=== PATIENT | female | born 1960 | race Caucasian/White ===

== ENCOUNTER → 2017-05-10 | Outpatient (CLI) | payer BC ==
[~2017-05-10] MED LIST: BACL10TA PO; DULO20CA18 PO; DULO60CA58 PO; HYDR25TA4 PO; LEVO75TA6 PO; LISI10TA2 PO; METF1000 PO; OMEP20TA7 PO; OMEP40CA36 PO; PRAV40TA2 PO; RT-ALBUINH IH; TRAM50TA2 PO
--- NOTE | 2017-05-10 14:53 | Diagnostic Imaging Report ---
PROCEDURE: MRI lumbar spine. TECHNIQUE: Multiplanar, multisequence MRI of the lumbar spine was performed without contrast. INDICATION: Back pain. Previous back surgeries. COMPARISON: None. FINDINGS: For the purposes of this exam, last well-formed disc space is noted the L5-S1 level. Evaluation of static alignment demonstrates reversal of normal lordotic curvature of the lumbar spine epicentered at the L1 level. There is no significant anterolisthesis or retrolisthesis. There is no evidence of jumped facets. Vertebral body heights are maintained. There is no evidence acute fracture. There are Modic type I changes involving the adjacent endplates on the right at L4-L5. Otherwise, the marrow signal is essentially unremarkable. There are multilevel degenerative changes consisting of intervertebral disc height loss with anterior posterior osteophyte complex formations. Postsurgical changes of previous hemilaminectomy are noted. Visualized portions of distal cord are unremarkable. Conus terminates at approximately the L1 level. No abnormal intrathecal filling defects are seen. Pre-and paravertebral soft tissue structures are unremarkable. Axial images demonstrate the following: T12-L1: There is no large disc bulge or focal protrusion. There is no significant spinal canal or neuroforaminal stenosis. L1-L2: There is right paracentric posterior disc protrusion. Is also bilateral ligament flavum laxity and facet arthropathy. As result, there is mild focal narrowing of the spinal canal on the right. There is also asymmetric mild narrowing of the lateral recess and right neuroforamen. Left neuroforamen is unremarkable. L2-L3: There is broad-based posterior disc bulge, eccentric to the left. Is also bilateral ligament flavum laxity and facet arthropathy. As result, there is mild narrowing of the spinal canal and asymmetric mild narrowing of the left neuroforamen. Right neuroforamen is unremarkable. L3-L4: There is broad-based posterior disc bulge, eccentric to the right. There is also bilateral ligament flavum laxity and facet arthropathy. As a result, there is mild narrowing of the spinal canal and asymmetric moderate narrowing of the right neuroforamen. There is minimal narrowing on the left. L4-L5: There is broad-based posterior disc bulge, postsurgical changes of previous right hemilaminectomy are noted. There is mild facet arthropathy and ligament flavum laxity on the left. There is moderate narrowing of the bilateral neuroforamen. Spinal canal is not significant narrowed. L5-S1: There is bilateral facet arthropathy. There is no large disc bulge or focal protrusion. There is no significant spinal canal or neuroforaminal stenosis. IMPRESSION: 1. Multilevel degenerative changes of the lumbar spine as described above. 2. Postsurgical changes of previous hemilaminectomy. No acute fracture or dislocation is identified. Dictated by: Dictated on workstation # [id number]
== END ==
LOC: RAD 13:30
PROVIDERS: ATTEND Orthopaedic Surgery Orthopaedic Surgery of the Spine
DX: M47.816 Spondylosis without myelopathy or radiculopathy, lumbar region; Z98.890 Other specified postprocedural states
CPT/HCPCS: 72148

== ENCOUNTER 2017-07-06 12:50 | Outpatient (CLI) | payer BC ==
[~2017-07-06] VITALS: Ht 152.4 cm; Wt 98.2 kg
[2017-07-06] MEDS ORDERED: HYDR25TA4 PO (13:03)
[2017-07-06] MEDS ORDERED: METF1000 PO (13:03)
[2017-07-06] MEDS ORDERED: OMEP40CA36 PO (13:03)
[2017-07-06] MEDS ORDERED: LEVO75TA6 PO (13:03)
[2017-07-06] MEDS ORDERED: PRAV40TA2 PO (13:03)
[2017-07-06] MEDS ORDERED: LISI10TA2 PO (13:03)
[2017-07-06] MEDS ORDERED: DULO20CA18 PO (13:03)
[2017-07-06] MEDS ORDERED: RT-ALBUINH IH (13:05)
[2017-07-06 13:09] VITALS: BP 143/79
[2017-07-06] MEDS ORDERED: DULO60CA58 PO (13:31)
[2017-07-06] MEDS ORDERED: OMEP20TA7 PO (13:31)
[2017-07-06 13:36] LABS: BASOPHILS # (AUTO) 0.1 10^3/uL (0.0-0.1); BASOPHILS % (AUTO) 1 % (0-10); EOSINOPHILS # (AUTO) 0.1 10^3/uL (0.0-0.3); EOSINOPHILS % (AUTO) 1 % (0-10); LYMPHOCYTES # (AUTO) 3.2 X 10^3 (1.0-4.0); LYMPHOCYTES % (AUTO) 38 % (12-44); MEAN CORPUSCULAR HEMOGLOBIN 28 PG (25-34); MEAN CORPUSCULAR HGB CONC 32 G/DL (32-36); MEAN CORPUSCULAR VOLUME 85 FL (80-99); MONOCYTES # (AUTO) 0.5 X 10^3 (0.0-1.0); MONOCYTES % (AUTO) 6 % (0-12); NEUTROPHILS # (AUTO) 4.7 X 10^3 (1.8-7.8); NEUTROPHILS % (AUTO) 55 % (42-75); PLATELET COUNT 358 10^3/uL (130-400); RED BLOOD COUNT 4.79 10^6/uL (4.35-5.85); RED CELL DISTRIBUTION WIDTH 14.5 % (10.0-14.5); WHITE BLOOD COUNT 8.6 10^3/uL (4.3-11.0)
== END 2017-07-06 14:00 ==
LOC: PREOP 12:50
PROVIDERS: ATTEND Orthopaedic Surgery Orthopaedic Surgery of the Spine
DX: Z01.812 Encounter for preprocedural laboratory examination (principal); M47.819 Spondylosis without myelopathy or radiculopathy, site unspecified; I10 Essential (primary) hypertension; Z22.322 Carrier or suspected carrier of Methicillin resistant Staphylococcus aureus
CPT/HCPCS: 36415; 85025; 87081

== ENCOUNTER 2017-07-19 07:22 | Inpatient (IN) | payer BC ==
[~2017-07-19] VITALS: Ht 152.4 cm; Wt 98.2 kg
[~2017-07-19 07:22] MED LIST changes: -BACL10TA PO; -TRAM50TA2 PO
--- OUTSIDE RECORDS SUMMARY | 2017-07-19 07:34 | XMS REPORT ---
Author Author [facility] Medical Staff Organization [facility] Address [address] [place], [place] [address] Phone [phone] Summary purpose TRANSITION OF CARE AUTO GENERATION Chief Complaint and Reason for Visit No authorized Reason for Visit (Admitting Diagnosis) is available for this visit. Problem list No authorized problems tracked for continuity of care are available for this visit. Encounters No authorized problems tracked for encounter diagnoses are available for this visit. Medications No medications recorded for this patient visit Allergies, adverse reactions, alerts Allergen Category Ingredient Status Reaction Severity Onset Sulfa (Sulfonamide Antibiotics) Drug Allergy Sulfa (Sulfonamide Antibiotics) Confirmed or Verified shrimp Food Allergy shrimp Confirmed or Verified plastic tape Miscellaneous Allergy plastic tape Confirmed or Verified red, rash, blisters Immunizations No immunizations recorded for this patient visit Relevant diagnostic tests and/or laboratory data RESULTS Radiology Results [id number] ABD SONO COMPLETE PACs Image DATE OF EXAM: Oct 31 2015 [id number] COMPLETE SONO : RADIOLOGY REPORT DATE OF SERVICE: 10/31/15 HISTORY: Abdominal pain COMPLETE ABDOMINAL [id number] HOURS The liver shows diffuse fatty infiltration without focal lesions. The gallbladder is surgically absent. The bile ducts are normal. The pancreas is within normal limits. Both kidneys are normal. The spleen is unremarkable. There is no abdominal mass or ascites. The abdominal aorta is normal in caliber. The inferior vena cava is patent. IMPRESSION: Fatty liver. Status post cholecystectomy. No other significant abdominal abnormality. MD EFREM Judd/mn10/31/2015 08:45:00 / 10/31/2015 08:53:12 cc:Nikki SAHU This document has been electronically Signed by: On: DATE OF EXAM: Oct 31 2015 [id number] COMPLETE SONO : RADIOLOGY REPORT DATE OF SERVICE: 10/31/15 HISTORY: Abdominal pain COMPLETE ABDOMINAL [id number] HOURS The liver shows diffuse fatty infiltration without focal lesions. The gallbladder is surgically absent. The bile ducts are normal. The pancreas is within normal limits. Both kidneys are normal. The spleen is unremarkable. There is no abdominal mass or ascites. The abdominal aorta is normal in caliber. The inferior vena cava is patent. IMPRESSION: Fatty liver. Status post cholecystectomy. No other significant abdominal abnormality. Alexis Martinez MD MWRico/nh10/31/2015 08:45:00 / 10/31/2015 08:53:12 cc:Nikki WATERSP-Bonifacio This document has been electronically Signed by: ALEXIS MARTINEZ MD On: Oct 31 2015 10:27A Result Amended on 2015-10-31 at 10:27:05. Previous status was [place]. History of procedures Procedure Code Code Type Description Date Performed Performing Physician 75395 CPT-4 US EXAM, ABDOM, COMPLETE 10-31-2015 DORIS STACK Functional status No functional or cognitive status observations are available for this visit. Vital signs No authorized vital signs are available for this visit. Social history No Social History or smoking status observations were recorded for this visit. ( Unknown if ever smoked.) Treatment Plan No treatment plan text is available for this visit. Hospital discharge instructions No discharge instruction text is available for this visit.
--- OUTSIDE RECORDS SUMMARY | 2017-07-19 07:34 | XMS REPORT ---
Author Author [facility] Medical Staff Organization [facility] Address [address] [place], [place] [address] Phone [phone] Summary purpose TRANSITION OF CARE AUTO GENERATION [...] tests and/or laboratory data RESULTS Radiology Results [id number] MRI L-SPINE W/O CONT PACs Image DATE OF EXAM: Mar 17 2016 MRI 0085-MRI L SPINE WO CONTRAST : RADIOLOGY REPORT DATE OF SERVICE: 03/17/16 HISTORY: Progressive low back pain with right leg radiculopathy since September 2015, history of falls with injury in 2012 and 2013. NONCONTRAST MRI LUMBAR SPINE 0930 HOURS Imaging was performed in the sagittal and axial planes. No contrast was administered. The lumbar vertebrae show normal height and alignment. There is no fracture or subluxation. The upper sacrum is normal. The conus medullaris is normal and terminates at the upper aspect of L1. The paraspinous soft tissues are normal. The T12-L1 level is normal. At L1-L2 there is a small right paracentral disc protrusion with mild effacement of the ventral aspect of the subarachnoid space at this level. Definite nerve root effacement is not seen. There is no canal narrowing. At L2-L3, there is a focal left foraminal disc protrusion. Definite nerve root compromise is not evident. There is mild degenerative facet arthrosis without canal stenosis. At L3-L4, there is focal right foraminal disc protrusion which may compromise the proximal right L4 nerve root at the level of the L4 lateral recess. There is mild degenerative facet arthrosis. There is no canal narrowing. At L4-L5, there is central and right paracentral disc herniation with a right paracentral caudally extruded disc fragment extending to the mid L5 level. This compromises the right L5 nerve root and right lateral recess. There is moderate degenerative facet arthrosis. There is moderate canal stenosis. No left-sided nerve root effacement is seen. At L5-S1, there is minimal central posterior disc protrusion. There is a small left-sided paracentral annular fissure. There is mild degenerative facet arthrosis. There is no canal stenosis or nerve root effacement. IMPRESSION: Multilevel lumbar degenerative disc changes. Central and right paracentral disc herniation at L4-L5 with caudally extruded disc fragment. Small left foraminal disc protrusion at L2-L3 and small right foraminal disc protrusion at L3-L4. Minimal central posterior disc protrusion at L5-S1 and L1-L2. Mild canal stenosis at the L4-L5 level. Lower lumbar facet arthrosis as above. Alexis Martinez MD MWD/de03/17/2016 10:26:00 / 03/17/2016 13:07:01 cc:Kassidy Terrazas PA-C This document has been electronically Signed by: On: DATE OF EXAM: Mar 17 2016 MRI 0085-MRI L SPINE WO CONTRAST : RADIOLOGY REPORT DATE OF SERVICE: 03/17/16 HISTORY: Progressive low back pain with right leg radiculopathy since September 2015, history of falls with injury in 2012 and 2013. NONCONTRAST MRI LUMBAR SPINE 0930 HOURS Imaging was performed in the sagittal and axial planes. No contrast was administered. The lumbar vertebrae show normal height and alignment. There is no fracture or subluxation. The upper sacrum is normal. The conus medullaris is normal and terminates at the upper aspect of L1. The paraspinous soft tissues are normal. The T12-L1 level is normal. At L1-L2 there is a small right paracentral disc protrusion with mild effacement of the ventral aspect of the subarachnoid space at this level. Definite nerve root effacement is not seen. There is no canal narrowing. At L2-L3, there is a focal left foraminal disc protrusion. Definite nerve root compromise is not evident. There is mild degenerative facet arthrosis without canal stenosis. At L3-L4, there is focal right foraminal disc protrusion which may compromise the proximal right L4 nerve root at the level of the L4 lateral recess. There is mild degenerative facet arthrosis. There is no canal narrowing. At L4-L5, there is central and right paracentral disc herniation with a right paracentral caudally extruded disc fragment extending to the mid L5 level. This compromises the right L5 nerve root and right lateral recess. There is moderate degenerative facet arthrosis. There is moderate canal stenosis. No left-sided nerve root effacement is seen. At L5-S1, there is minimal central posterior disc protrusion. There is a small left-sided paracentral annular fissure. There is mild degenerative facet arthrosis. There is no canal stenosis or nerve root effacement. IMPRESSION: Multilevel lumbar degenerative disc changes. Central and right paracentral disc herniation at L4-L5 with caudally extruded disc fragment. Small left foraminal disc protrusion at L2-L3 and small right foraminal disc protrusion at L3-L4. Minimal central posterior disc protrusion at L5-S1 and L1-L2. Mild canal stenosis at the L4-L5 level. Lower lumbar facet arthrosis as above. Alexis Martinez MD MWD/de03/17/2016 10:26:00 / 03/17/2016 13:07:01 cc:Kassidy Terrazas PA-C This document has been electronically Signed by: ALEXIS MARTINEZ MD On: Mar 17 20162:18P Result Amended on 2016-03-17 at 14:18:19. Previous status was [place]. L Diagnostic Digital Mammo PACs Image DATE OF EXAM: Mar 17 2016 [facility] 0811-UNILAT L DIAG DIG MAMMO : RADIOLOGY REPORT DATE OF SERVICE: 03/17/16 HISTORY: Asymmetry on screening mammogram DIAGNOSTIC DIGITAL LEFT [id number] HOURS Detailed spot compression views, repeat cephalocaudal view, and straight mediolateral view of the left breast were obtained. There are scattered residual fibroglandular densities. There is no definite mass or distortion. There are no microcalculi. The questioned asymmetry in the cephalocaudal view is felt to be benign fibroglandular density. IMPRESSION: Negative left mammogram BI-RADS I recommend return to routine annual mammographic screening. MD EFREM Judd/de03/17/2016 11:06:00 / 03/17/2016 13:22:08 cc:Kassidy Terrazas PA-C This document has been electronically Signed by: On: DATE OF EXAM: Mar 17 2016 [facility] 0811-UNILAT L DIAG DIG MAMMO : RADIOLOGY REPORT DATE OF SERVICE: 03/17/16 HISTORY: Asymmetry on screening mammogram DIAGNOSTIC DIGITAL LEFT [id number] HOURS Detailed spot compression views, repeat cephalocaudal view, and straight mediolateral view of the left breast were obtained. There are scattered residual fibroglandular densities. There is no definite mass or distortion. There are no microcalculi. The questioned asymmetry in the cephalocaudal view is felt to be benign fibroglandular density. IMPRESSION: Negative left mammogram BI-RADS I recommend return to routine annual mammographic screening. MD EFREM Judd/de03/17/2016 11:06: / 03/17/2016 13:22:08 cc:Kassidy Terrazas PA-C This document has been electronically Signed by: ALEXIS MARTINEZ MD On: Mar 17 20162:18P Result Amended on 2016-03-17 at 14:18:32. Previous status was [place]. History of procedures No procedures recorded for this patient visit. Functional status No functional or cognitive status [...]
--- OUTSIDE RECORDS SUMMARY | 2017-07-19 07:34 | XMS REPORT ---
Author Author [facility] Medical Staff Organization [facility] Address [address] [place], [place] [id number] Phone [phone] Care Team Providers Care Cartoon Designer Name Role Phone BENI MARTINEZ MD PP [phone] Summary purpose TRANSITION OF CARE AUTO GENERATION Chief Complaint and Reason for Visit Admit Diagnosis 1 LUMBAGO Problem list No authorized problems tracked for [...] visit Relevant diagnostic tests and/or laboratory data No authorized results are available for this patient visit History of procedures Procedure Code Code Type Description Date Performed Performing Physician [id number] CPT-4 ALS1-EMERGENCY 04-18-2015 [facility] A0425 CPT-4 GROUND MILEAGE 04-18-2015 [facility] Functional status No functional or cognitive status [...]
--- OUTSIDE RECORDS SUMMARY | 2017-07-19 07:34 | XMS REPORT ---
Author Author [facility] Medical Staff Organization [facility] Address [address] [place], [place] [address] Phone [phone] Summary purpose TRANSITION OF CARE AUTO GENERATION [...] tests and/or laboratory data RESULTS Radiology Results [id number]:24:00 Bilateral Screen Digital Mammo PACs Image DATE OF EXAM: 2015 [facility] 0845-BILAT SCREEN DIG MAMMO : RADIOLOGY REPORT DATE OF SERVICE: 03/04/16 HISTORY: Screening exam BILATERAL DIGITAL SCREENING MAMMOGRAM WITH iCAD SecondLook 7.2-H+ 0821 HOURS Comparison is made with 02/26/2015 and 02/19/2014. There are scattered residual fibroglandular densities. There is a 5 mm asymmetry in the retroareolar left breast in the cephalocaudal view, 3.8 cm posterior to the nipple. This is not apparent in the MLO projection. The right breast shows no dominant lesions. There are no irregular masses or grouped microcalculi. There is no distortion. IMPRESSION: 5 mm left breast asymmetry as described above. Detailed spot compression views in the cephalocaudal view, straight mediolateral view, and possible left breast ultrasound are recommended for additional evaluation, BI-RADS 0, evaluation incomplete, need additional imaging. MD EFREM Judd/ar03/04/2016 08:44:00 / 03/04/2016 09:21:45 cc:Sneha Terrazas PA-C This document has been electronically Signed by: On: DATE OF EXAM: 2015 [facility] 0845-BILAT SCREEN DIG MAMMO : RADIOLOGY REPORT DATE OF SERVICE: 03/04/16 HISTORY: Screening exam BILATERAL DIGITAL SCREENING MAMMOGRAM WITH iCAD SpodlyLook 7.2-H+ 0821 HOURS Comparison is made with 02/26/2015 and 02/19/2014. There are scattered residual fibroglandular densities. There is a 5 mm asymmetry in the retroareolar left breast in the cephalocaudal view, 3.8 cm posterior to the nipple. This is not apparent in the MLO projection. The right breast shows no dominant lesions. There are no irregular masses or grouped microcalculi. There is no distortion. IMPRESSION: 5 mm left breast asymmetry as described above. Detailed spot compression views in the cephalocaudal view, straight mediolateral view, and possible left breast ultrasound are recommended for additional evaluation, BI-RADS 0, evaluation incomplete, need additional imaging. MD EFREM Judd/ar03/04/2016 08:44:00 / 03/04/2016 09:21:45 cc:Sneha Terrazas PA-C This document has been electronically Signed by: TOVA COTE MD On: 2015 10:24A Result Amended on 2016-03-04 at 10:24:11. Previous status was [place]. History of procedures Procedure Code Code Type Description Date Performed Performing Physician 84678 CPT-4 MAMMOGRAM, SCREENING 03-04-2016 SNEHA TERRAZAS 61516 CPT-4 COMP SCREEN MAMMOGRAM ADD-ON 03-04-2016 SNEHA TERRAZAS Functional status No functional or cognitive status [...]
--- OUTSIDE RECORDS SUMMARY | 2017-07-19 07:34 | XMS REPORT ---
Author Author [facility] Medical Staff Organization [facility] Address [address] [place], [place] [address] Phone [phone] Summary purpose TRANSITION OF CARE AUTO GENERATION [...] tests and/or laboratory data RESULTS Radiology Results [id number]:00 MRI L-SPINE W/O CONT PACs Image DATE [...] facet arthrosis as above. Alexis Martinez MD MWD/sc03/17/2016 10:26:00 / 03/17/2016 13:07:01 cc:Kassidy Terrazas PA-C [...] facet arthrosis as above. Alexis Martinez MD MWD/sc03/17/2016 10:26:00 / 03/17/2016 13:07:01 cc:Kassidy Terrazas PA-C This document has been electronically Signed by: ALEXIS MARTINEZ MD On: Mar 17 20162:18P Result Amended on 2016-03-17 at 14:18:19. Previous status was [place]. L Diagnostic Digital Mammo PACs Image DATE OF EXAM: Mar 17 2016 [facility] 0811-UNILAT L DIAG DIG MAMMO : RADIOLOGY REPORT DATE OF SERVICE: 03/17/16 HISTORY: Asymmetry on screening mammogram DIAGNOSTIC DIGITAL LEFT [id number] HOURS Detailed spot compression views, repeat cephalocaudal [...] to routine annual mammographic screening. MD EFREM Judd/sc03/17/2016 11:06:00 / 03/17/2016 13:22:08 cc:Kassidy Terrazas PA-C This document has been electronically Signed by: On: DATE OF EXAM: Mar 17 2016 [facility] 0811-UNILAT L DIAG DIG MAMMO : RADIOLOGY REPORT DATE OF SERVICE: 03/17/16 HISTORY: Asymmetry on screening mammogram DIAGNOSTIC DIGITAL LEFT [id number] HOURS Detailed spot compression views, repeat cephalocaudal [...] to routine annual mammographic screening. MD EFREM Judd/sc03/17/2016 11:06: / 03/17/2016 13:22:08 cc:Kassidy Terrazas PA-C This document has been electronically Signed by: ALEXIS MARTINEZ MD On: Mar 17 20162:18P Result Amended on 2016-03-17 at 14:18:32. Previous status was [place]. History of procedures No procedures recorded for [...]
--- OUTSIDE RECORDS SUMMARY | 2017-07-19 07:34 | XMS REPORT ---
Author Author [facility] Medical Staff Organization [facility] Address [address] [place], [place] [address] Phone [phone] Summary purpose TRANSITION OF CARE AUTO GENERATION [...] Relevant diagnostic tests and/or laboratory data RESULTS Chemistry [id number]:41:00 Result Normal Range Units Sodium 141 134-145 mEq/l Potassium 3.8 3.5-5.1 mEq/l Chloride 101 98-107 mEq/l CO2 H 35.0 22-28 mEq/l Glucose H 115 70-105 mg/dl BUN 12 7-18 mg/dl Creatinine 0.91 0.6-1.0 mg/dl Triglycerides 108 35-160 mg/dl Cholesterol H 248 120-200 mg/dl HDL Cholesterol 48 39-96 mg/dl VLDL Cholesterol 22 5-40 mg/dl LDL Cholesterol H 186 30-100 mg/dl Calcium 8.9 8.4-10.2 mg/dl TP - Total Protein 7.3 6.0-8.3 g/dl Albumin 3.5 3.5-5 g/dl Bilirubin - Total 0.3 0.1-1.0 mg/dl AST 20 10-42 IU/L ALT 30 12-65 IU/L ALP H 81 25-72 IU/L Osmolality 281.9 280-300 mOsm/L Albumin/Globulin Ratio 0.9 0-8 Anion GAP L 5.0 8-16 BUN/Creatinine Ratio 13.2 10-20 Estimated GFR 63 >=60 mL/min/1.7 History of procedures No procedures recorded for [...]
[2017-07-19 07:35] VITALS: BP 142/85
--- OUTSIDE RECORDS SUMMARY | 2017-07-19 07:35 | XMS REPORT ---
Author Author [facility] Medical Staff Organization [facility] Address [address] [place], [place] [address] Phone [phone] Care Team Providers Care Commonwealth Attorney Name Role Phone JUAN WALKER, BENI RICHEY [phone] BENI MARTINEZ MD, PP [phone] Summary purpose TRANSITION OF CARE AUTO GENERATION [...] Relevant diagnostic tests and/or laboratory data RESULTS Routine Urinalysis 25-59-099042:23:00 Result Normal Range Units Color YELLOW Clarity Clear Specific [place] 1.015 1.003-1.035 pH 8.0 4.5-8.0 Glucose NEGATIVE Bilirubin NEGATIVE Ketones NEGATIVE Protein NEGATIVE Urobilinogen 0.2 0-0.2 E.U./dL Nitrites NEGATIVE Blood TRACE Leukocytes TRACE WBCs 5-10 RBCs 0-5 Squamous Epithelial Few Bacteria Occasional Body Fluid 89-10-539325:23:00 Result Normal Range Units pH 8.0 4.5-8.0 Radiology Results 74-74-159647:30:00 Thoracic Spine - 3 View PACs Image DATE OF EXAM: Apr 18 2015 RAD 0425-THORACIC SPINE-3 VIEW : RADIOLOGY REPORT DATE OF SERVICE: 04/18/15 HISTORY: Right back pain THORACIC SPINE 3 VIEWS 0940 HOURS The thoracic vertebrae are normal in height and alignment. There is no fracture. Degenerative disc changes are scattered in the mid thoracic spine. IMPRESSION: Mild degenerative thoracic disc changes. No thoracic fracture. MD EFREM Judd/ut04/18/2015 10:07:00 / 04/18/2015 10:13:21 cc:Dr. Beni Martinez This document has been electronically Signed by: On: DATE OF EXAM: Apr 18 2015 RAD 0425-THORACIC SPINE-3 VIEW : RADIOLOGY REPORT DATE OF SERVICE: 04/18/15 HISTORY: Right back pain THORACIC SPINE 3 VIEWS 0940 HOURS The thoracic vertebrae are normal in height and alignment. There is no fracture. Degenerative disc changes are scattered in the mid thoracic spine. IMPRESSION: Mild degenerative thoracic disc changes. No thoracic fracture. MD EFREM Judd/ut04/18/2015 10:07:00 / 04/18/2015 10:13:21 cc:Dr. Beni Martinez This document has been electronically Signed by: TOVA COTE On: Apr 18 20155:30P Result Amended on 2015-04-18 at 17:30:24. Previous status was [place]. History of procedures No procedures recorded for this patient visit. Functional status Functional Status Finding Observation Time Hearing Prob Loc none 72-96-873748:30 Vision Problems yes 89-19-911909:30 Vision Correct Dev contacts 64-42-646401:30 Ambulation Asst Dev none 10-04-197557:30 Abdomen Appearance obese 15-51-415710:45 Abdomen soft 82-52-644699:45 Bowel Sounds present 98-18-807941:45 Latif no 46-16-362459:45 Urination normal 14-48-613500:45 Quality sym/unlabored 83-64-218417:45 Cough absent 72-41-685508:45 Secretions no 18-45-945278:45 Breath Sounds RUL clear 94-19-736885:45 Breath Sounds RML clear 38-84-007077:45 Breath Sounds RLL clear :45 Breath Sounds JOHNNY clear 76-81-712597:45 Breath Sounds LLL clear 24-58-901739:45 Airway natural 06-81-717292:45 Chest Tube no 60-79-209979:45 Oxygen no 90-23-826470:12 Temp >100.4 no 51-54-970842:45 Temp <96.8 no 52-44-058553:45 Chills with rigors no :45 HR > 90bpm no :45 Respirations > 20 no : Systolic <90 no :45 headache stiff neck no :45 IV Site Location L AC 57-79-926002:10 IV Type peripheral 10-93-677718:10 IV Site Information discontinued 37-37-231234:10 IV Site Start Attmpt 1 times 68-21-647195:30 IV Site Dejan 20 66-47-602834:30 IV Site Appearance WNL :30 IV Site Color clear : IV Site Patent yes : Dressing Type occlusive : Nursing Note VS obtained. Pt now rates her pain at 3/10. Pt stable to ambulate off [place] with her to drive her home safely. 98-76-683950:12 Vital signs Type Value Date Respiration Rate 20breaths per minute 41-44-305554:12 Pulse 68beats per minute 65-08-544076:12 Oxygen Saturation 94% 80-67-311607:12 BP Systolic 163mmHg 75-43-316703:12 BP Diastolic 85mmHg 79-50-498151:12 Temperature 97.4F 90-35-409752:12 Weight 215LB 43-78-724084:30 Social history Type Value Smoking Status NEVER SMOKER Treatment Plan No treatment plan text is available for this visit. Hospital discharge instructions Dismissal Condition fair Disposition on DC home DC Inst/Educ Give yes Med/Side Effects Rev yes PNE Vac None Flu Vac 2015 Tetanus Vac Current
--- OUTSIDE RECORDS SUMMARY | 2017-07-19 07:35 | XMS REPORT ---
Author Author [facility] Medical Staff Organization [facility] Address [address] [place], [place] [address] Phone [phone] Summary purpose TRANSITION OF CARE AUTO GENERATION [...] diagnostic tests and/or laboratory data RESULTS Chemistry 71-36-118317:41:00 Result Normal Range Units Sodium 141 134-145 [...] GFR 63 >=60 mL/min/1.7 History of procedures Procedure Code Code Type Description Date Performed Performing Physician 47370 CPT-4 COMPREHEN METABOLIC PANEL 05-15-2016 SENHA CASTILLO 70570 CPT-4 LIPID PANEL 05-15-2016 SNEHA CASTILLO Functional status No functional or cognitive status [...]
--- OUTSIDE RECORDS SUMMARY | 2017-07-19 07:35 | XMS REPORT ---
Author Author [facility] Medical Staff Organization [facility] Address [address] [place], [place] [address] Phone [phone] Summary purpose TRANSITION OF CARE AUTO GENERATION [...] tests and/or laboratory data RESULTS Radiology Results 70-71-477703:24:00 Bilateral Screen Digital Mammo PACs Image DATE OF EXAM: 2015 [facility] 0845-BILAT SCREEN DIG MAMMO : RADIOLOGY REPORT [...] evaluation incomplete, need additional imaging. MD EFREM Judd/nd03/04/2016 08:44:00 03/04/2016 09:21:45 cc:Kassidy Terrazas PA-C This document has been electronically Signed by: On: DATE OF EXAM: 2015 [facility] 0845-BILAT SCREEN DIG MAMMO : RADIOLOGY REPORT DATE OF SERVICE: 03/04/16 HISTORY: Screening exam BILATERAL DIGITAL SCREENING MAMMOGRAM WITH iCAD Algal ScientificLook 7.2-H+ 0821 HOURS Comparison is made with [...] BI-RADS 0, evaluation incomplete, need additional imaging. Alexis Martinez MD Rico/nd03/04/2016 08:44:00 / 03/04/2016 09:21:45 cc:Kassidy Terrazas PA-C This document has been electronically Signed by: ALEXIS MARTINEZ MD On: 2015 10:24A Result Amended on 2016-03-04 at 10:24:11. Previous status was [place]. History of procedures No procedures recorded for [...]
--- OUTSIDE RECORDS SUMMARY | 2017-07-19 07:35 | XMS REPORT ---
Author Author [facility] Medical Staff Organization [facility] Address [address] [place], [place] [address] Phone [phone] Summary purpose TRANSITION OF CARE AUTO GENERATION [...] tests and/or laboratory data RESULTS Radiology Results 68-22-925809:27:00 ABD SONO COMPLETE PACs Image DATE OF EXAM: Oct 31 2015 [id number] COMPLETE SONO : RADIOLOGY REPORT DATE OF SERVICE: 10/31/15 HISTORY: Abdominal pain COMPLETE ABDOMINAL [id number] HOURS The liver shows diffuse fatty infiltration [...] No other significant abdominal abnormality. MD EFREM Judd/ms10/31/2015 08:45:00 / 10/31/2015 08:53:12 cc:Nikki SAHU This document has been electronically Signed by: On: DATE OF EXAM: Oct 31 2015 [id number] COMPLETE SONO : RADIOLOGY REPORT DATE OF SERVICE: 10/31/15 HISTORY: Abdominal pain COMPLETE ABDOMINAL [id number] HOURS The liver shows diffuse fatty infiltration [...] other significant abdominal abnormality. Alexis Martinez MD MWD/nh10/31/2015 08:45:00 / 10/31/2015 08:53:12 cc:Nikki WATERSP- This document has been electronically Signed by: ALEXIS MARTINEZ MD On: Oct 31 2015 10:27A Result Amended on 2015-10-31 at 10:27:05. Previous status was [place]. History of procedures No procedures recorded for [...]
--- OUTSIDE RECORDS SUMMARY | 2017-07-19 07:35 | XMS REPORT ---
Author Author [facility] Medical Staff Organization [facility] Address [address] [place], [place] [address] Phone [phone] Care Team Providers Care Officer Lieutenant Name Role Phone JUAN WALKER, BENI RICHEY [phone] BENI MARTINEZ MD, PP [phone] Summary purpose TRANSITION OF CARE AUTO GENERATION Chief Complaint and Reason for Visit Admit Diagnosis 1 BACKACHE NOS Problem list No authorized problems tracked for [...] tests and/or laboratory data RESULTS Routine Urinalysis 04-71-054209:23:00 Result Normal Range Units Color YELLOW Clarity Clear Specific [place] 1.015 1.003-1.035 pH 8.0 4.5-8.0 Glucose NEGATIVE Bilirubin NEGATIVE Ketones NEGATIVE Protein NEGATIVE Urobilinogen 0.2 0-0.2 E.U./dL Nitrites NEGATIVE Blood TRACE Leukocytes TRACE WBCs 5-10 RBCs 0-5 Squamous Epithelial Few Bacteria Occasional Routine Cultures 02-26-825687:53:00 Urine Culture Plate Date and Time 04/18/2015 09:53 SourceURINE CULTURE REPORT 10,000 colonies/ml Mixed Gram Pos Delfina Release Date/Time: 04/19/2015 08:15 CULTURE REPORT 20,000 colonies/ml Mixed Gram Pos Delfina Release Date/Time: 04/20/2015 07:47 Body Fluid 42-79-348071:23:00 Result Normal Range Units pH 8.0 4.5-8.0 Radiology Results 13-54-432067:30:00 Thoracic Spine - 3 View PACs Image [...] disc changes. No thoracic fracture. MD EFREM Judd/fl04/18/2015 10:07: / 04/18/2015 10:13:21 cc:Dr. Beni Martinez This [...] degenerative thoracic disc changes. No thoracic fracture. Alexis Martinez MD Rico/fl04/18/2015 10:07: / 04/18/2015 10:13:21 cc:Dr. Beni Martinez This document has been electronically Signed by: ALEXIS MARTINEZ On: Apr 18 20155:30P Result Amended on 2015-04-18 at 17:30:24. Previous status was [place]. History of procedures Procedure Code Code Type Description Date Performed Performing Physician 99481 CPT-4 X-RAY EXAM OF THORACIC SPINE 04-18-2015 SHEILA GONZALEZ 27208 CPT-4 URINALYSIS, AUTO W/SCOPE 04-18-2015 SHEILA GONZALEZ 79530 CPT-4 URINE CULTURE/COLONY COUNT 04-18-2015 SHEILA GONZALEZ J2360 CPT-4 ORPHENADRINE INJECTION 04-18-2015 SHEILA GONZALEZ 70118 CPT-4 EMERGENCY DEPT VISIT 04-18-2015 SHEILA GONZALEZ 39316 CPT-4 EMERGENCY DEPT VISIT 04-18-2015 SHEILA GONZALEZ 08742 CPT-4 THER/PROPH/DIAG INJ, IV PUSH 04-18-2015 SHEILA GONZALEZ Functional status Functional Status Finding Observation Time Hearing Prob Loc none 81-27-027313:30 Vision Problems yes 36-65-860421:30 Vision Correct Dev contacts 47-04-704499:30 Ambulation Asst Dev none 43-44-902648:30 Abdomen Appearance obese 22-39-406202:45 Abdomen soft :45 Bowel Sounds present :45 Latif no :45 Urination normal :45 Quality sym/unlabored :45 Cough absent :45 Secretions no :45 Breath Sounds RUL clear :45 Breath Sounds RML clear :45 Breath Sounds RLL clear :45 Breath Sounds JOHNNY clear :45 Breath Sounds LLL clear :45 Airway natural :45 Chest Tube no :45 Oxygen no :12 Temp >100.4 no :45 Temp <96.8 no :45 Chills with rigors no : HR > 90bpm no :45 Respirations > 20 no :45 Systolic <90 no :45 headache stiff neck no :45 IV Site Location L AC 48-48-991454:10 IV Type peripheral 60-30-400844:10 IV Site Information discontinued 53-88-472857:10 IV Site Start Attmpt 1 times :30 IV Site Dejan 20 :30 IV Site Appearance WNL :30 IV Site Color clear :30 IV Site Patent yes 29-56-252259:30 Dressing Type occlusive 65-22-204715:30 Nursing Note VS obtained. Pt now rates her pain at 3/10. Pt stable to ambulate off [place] with her to drive her home safely. :12 Vital signs Type Value Date Respiration Rate 20breaths per minute 72-51-504373:12 Pulse 68beats per minute 93-95-658849:12 Oxygen Saturation 94% :12 BP Systolic 163mmHg 68-17-386172:12 BP Diastolic 85mmHg 83-10-041791:12 Temperature 97.4F 51-95-954877:12 Weight 215LB 30-16-524682:30 Social history Type Value Smoking Status NEVER SMOKER Treatment Plan No treatment plan text is available for this visit. Hospital discharge instructions Dismissal Condition fair Disposition on DC home DC Inst/Educ Give yes Med/Side Effects Rev yes PNE Vac None Flu Vac 2015 Tetanus Vac Current
--- OUTSIDE RECORDS SUMMARY | 2017-07-19 07:35 | XMS REPORT ---
Author Author [facility] Medical Staff Organization [facility] Address [address] [place], [place] [address] Phone [phone] Care Team Providers Care Manufacturing Controls Engineer Name Role Phone BENI MARTINEZ MD PP [phone] Summary purpose TRANSITION OF CARE AUTO GENERATION [...] for this patient visit History of procedures No procedures recorded for [...]
--- OUTSIDE RECORDS SUMMARY | 2017-07-19 07:35 | XMS REPORT ---
Author Author [facility] Medical Staff Organization [facility] Address [address] [place] [id number] Phone [phone] Care Team Providers Care Electric Truck Crane Operator Name Role Phone BENI MARTINEZ MD PP [phone] Summary purpose TRANSITION OF CARE AUTO GENERATION [...]
--- OUTSIDE RECORDS SUMMARY | 2017-07-19 07:35 | XMS REPORT ---
Author Author [facility] Medical Staff Organization [facility] Address [address] [place], [place] [address] Phone [phone] Care Team Providers Care Chaser Apprentice Name Role Phone JUAN WALKER, BENI RICHEY [phone] BENI MARTINEZ MD, PP [phone] Summary purpose TRANSITION OF CARE AUTO GENERATION Chief Complaint and Reason for Visit Admit Diagnosis 1 OT SCREEN MAMMOGRAM Problem list No authorized problems tracked for [...] tests and/or laboratory data RESULTS Radiology Results 59-90-447593:51:00 Bilateral Screen Digital Mammo PACs Image DATE OF EXAM: Feb 26 2015 [facility] 0845-BILAT SCREEN DIG MAMMO : RADIOLOGY REPORT DATE OF SERVICE:02/26/15 HISTORY: Screening for possible malignant neoplasm BILATERAL SCREENING DIGITAL MAMMOGRAPHY WITH iCAD SecondLook 7.2 - H+ 0800 HOURS The breast has scattered fibroglandular density.No mass, grouped calculi or architectural distortion is seen. IMPRESSION:ACR BIRADS II - benign study similar to 02/19/14 DO LUIS Gamble/enoc 02/26/2015 17:01:00 / 02/26/2015 23:08:12 cc:Sneha Terrazas PA-C This document has been electronically Signed by: On: DATE OF EXAM: Feb 26 2015 [facility] 0845-BILAT SCREEN DIG MAMMO : RADIOLOGY REPORT DATE OF SERVICE:02/26/15 HISTORY: Screening for possible malignant neoplasm BILATERAL SCREENING DIGITAL MAMMOGRAPHY WITH iCAD SecondLook 7.2 - H+ 0800 HOURS The breast has scattered fibroglandular density.No mass, grouped calculi or architectural distortion is seen. IMPRESSION:ACR BIRADS II - benign study similar to 02/19/14 Sheila Browne DO MW/pb 02/26/2015 17:01:00 / 02/26/2015 23:08:12 cc:Sneha Terrazas PA-C This document has been electronically Signed by: SHEILA BROWNE DO On: Feb 27 2015 11:51A Result Amended on 2015-02-27 at 11:51:49. Previous status was [place]. History of procedures Procedure Code Code Type Description Date Performed Performing Physician 36354 CPT-4 MAMMOGRAM, SCREENING 02-26-2015 SNEHA TERRAZAS 81636 CPT-4 COMP SCREEN MAMMOGRAM ADD-ON 02-26-2015 SNEHA TERRAZAS Functional status No functional or [...]
--- OUTSIDE RECORDS SUMMARY | 2017-07-19 07:36 | XMS REPORT ---
Author Author [facility] Medical Staff Organization [facility] Address [address] [place] [address] Phone [phone] Care Team Providers Care Professor Of Communication Arts Name Role Phone JUAN WALKER, BENI RICHEY [phone] BENI MARTINEZ MD, PP [phone] Summary purpose TRANSITION OF CARE AUTO GENERATION [...]
[2017-07-19] MEDS ORDERED: VANCOMYCIN 1000 MG/VIAL ONE (07:38)
[2017-07-19] MEDS ORDERED: GENTAMICIN 40 MG/ML 2 ML INJ SDV ONE (07:39)
[2017-07-19] MEDS ORDERED: ceFAZolin 1,000 MG (ANCEF) VIAL ONE ×2 (08:10→12:58)
[2017-07-19] MEDS ORDERED: FAMOTIDINE 20MG/2ML IV (PEPCID) ONE (08:10)
[2017-07-19] MEDS ORDERED: NS (IVPB) 0 ML ONE (08:10)
[2017-07-19] MEDS ORDERED: SCOPOLAMINE 1.5 MG (TRANSDERM-SCOP) PATCH ONE (08:10)
[2017-07-19] MEDS ORDERED: FAMOTIDINE 20MG/2ML IV (PEPCID) IV ONE (08:15)
[2017-07-19] MEDS ORDERED: SCOPOLAMINE 1.5 MG (TRANSDERM-SCOP) PATCH TOP ONE (08:15)
[2017-07-19] MEDS ORDERED: ONDANSETRON 4 MG/2 ML (SDV) Z0FRAN IV ONE (08:15)
[2017-07-19] MEDS: LACTATED RINGERS 1,000 ML IV PRN ×3 (08:20→11:40)
[2017-07-19] MEDS ORDERED: SEVOFLURANE (ULTANE) 15 ML INHAL SOLN ONE ×8 (08:26→11:05)
[2017-07-19] MEDS ORDERED: proPOfol 200 MG/20 ML (DIPRIVAN) VIAL IV ONE (08:26)
[2017-07-19] MEDS ORDERED: LIDOCAINE PF 2% 5 ML (XYLOCAINE) VIAL ONE (08:26)
[2017-07-19] MEDS ORDERED: LACTATED RINGERS 1,000 ML IV ONE ×3 (08:26→11:27)
[2017-07-19] MEDS ORDERED: SUCCINYLCHOLINE INJ 100 MG/5 ML SYR ONE (08:26)
[2017-07-19] MEDS ORDERED: MIDAZOLAM 2 MG/2 ML (VERSED) VIAL ONE (08:28)
[2017-07-19] MEDS ORDERED: fentaNYL INJECTION 100 MCG/2 ML AMP ONE ×2 (08:28→09:59)
[2017-07-19] MEDS ORDERED: ceFAZolin 1 GM/NS 50 ML IVPB IV ONE ×2 (08:30)
[2017-07-19] MEDS ORDERED: DEXMEDETOMIDINE 200 MCG/2 ML (PRECEDEX) VIAL IV ONE ×2 (08:38→09:48)
[2017-07-19] MEDS ORDERED: MILK OF MAGNESIA 400 MG/5 ML 30 ML UDC PO PRN (08:45)
[2017-07-19] MEDS ORDERED: BACLOFEN 10 MG (LIORESAL) TAB PO PRN (08:45)
[2017-07-19] MEDS ORDERED: diphenhydrAMINE 25 MG TAB (BENADRYL) PO PRN (08:45)
[2017-07-19] MEDS ORDERED: PROMETHAZINE 25 MG (PHENERGAN) TAB PO PRN (08:45)
[2017-07-19] MEDS ORDERED: ACETAMINOPHEN 325 MG TABLET/CAPLET (TYLENOL) PO PRN (08:45)
[2017-07-19] MEDS ORDERED: BACITRACIN 100,000 UNIT/NS 1000 ML POUR BOTTLE IR ONE ×2 (08:45)
[2017-07-19] MEDS ORDERED: ONDANSETRON 4 MG/2 ML (SDV) Z0FRAN IV PRN (08:45)
[2017-07-19] MEDS ORDERED: GLYCOPYRROLATE 0.2 MG/ML (ROBINUL) 2 ML VIAL ONE ×4 (09:37→11:16)
[2017-07-19] MEDS ORDERED: NS (IVPB) 100 ML ONE (09:48)
[2017-07-19] MEDS: inSUlin ASPART (NovoLOG) 1 UNIT/0.01 ML (CHARGE PER UNIT) SC SCH ×3 (11:00→21:19)
--- NOTE | 2017-07-19 11:09 | Progress Note-Post Operative ---
Post-Operative Progess Note Surgeon (s)/Lining Maker (s) Surgeon CRISTÓBAL COOK MD Lining Maker: LAMBERT Reyes Pre-Operative Diagnosis Spondylolysis/Spondylolisthesis Post-Operative Diagnosis Same Procedure & Operative Findings Date of Procedure 07/19/17 Procedure Performed/Findings L3-5 AL/P Anesthesia Type GETA Estimated Blood Loss Estimated blood loss (mL): 100 Specimens/Packing Specimens Removed NOne CRISTÓBAL COOK MD Jul 19, 2017 11:09 am
[2017-07-19] MEDS ORDERED: ATROPINE INJ 0.4 MG/ML SDV ONE (11:16)
[2017-07-19] MEDS ORDERED: NEOSTIGMINE (BLOXIVERZ ) 1 MG/1ML 10 ML VIAL ONE (11:16)
[2017-07-19] MEDS ORDERED: ONDANSETRON 4 MG/2 ML (SDV) Z0FRAN IVP PRN (11:30)
[2017-07-19] MEDS ORDERED: MEPERIDINE (DEMEROL) INJ 50 MG/ML IVP PRN (11:30)
--- NOTE | 2017-07-19 11:43 | Diagnostic Imaging Report ---
Intraoperative views of the lumbar spine. INDICATION: Spinal fusion surgery performed by Dr. Mchugh. 1 minute and 41 seconds of fluoroscopy time utilized. IMPRESSION: Provided images demonstrate anterior intervertebral cage placement at L3-L4 and L4-L5 and posterior fusion hardware placed at L3 through L5 levels. Good alignment is seen. Dictated by: Dictated on workstation # [id number]
[2017-07-19] MEDS: morphine INJ 10 MG/ML 1ML (SYR OR VIAL) IVP PRN ×6 (12:00→21:20)
[2017-07-19] MEDS ORDERED: ceFAZolin INJECTION 2,000 MG in NS (IVPB) 50 ML IV SCH (12:45)
[2017-07-19] MEDS ORDERED: NS (IVPB) 50 ML ONE (12:58)
[2017-07-19] MEDS ORDERED: HYDROcodone/APAP 5 MG/325 MG (LORTAB) TAB ONE (14:04)
[2017-07-19] MEDS: HYDROcodone/APAP 5 MG/325 MG (LORTAB) TAB PO PRN ×2 (14:12→18:36)
[2017-07-19] MEDS: FAMOTIDINE 20 MG (PEPCID) TABLET PO SCH ×2 (14:49→21:20)
[2017-07-19] MEDS: NS IV 1000 ML 1,000 ML IV SCH ×2 (14:49→15:07)
[2017-07-19 15:45] VITALS: BP 124/77
[2017-07-19 19:25] VITALS: BP_SYST 114; BP_SYST 129; BP_DIAS 65; BP_DIAS 76
[2017-07-19] MEDS: ceFAZolin INJECTION 2,000 MG in NS (IVPB) 50 ML IV SCH (23:09)
[2017-07-20] VITALS (7 sets, daily range): BP systolic 119–166; BP diastolic 56–78
[2017-07-20] MEDS: morphine INJ 10 MG/ML 1ML (SYR OR VIAL) IVP PRN ×5 (00:09→21:38)
--- NOTE | 2017-07-20 01:06 | OPERATIVE REPORT ---
DATE OF SERVICE: 07/19/2017 PREOPERATIVE DIAGNOSES: 1. Lumbar stenosis. 2. Narrow canal neural foraminal due to disc and osseous stenosis and cervical stenosis. 3. Lumbar disk herniation. 4. Lumbar radiculopathy. 5. Post-laminectomy syndrome. 6. Post diskectomy syndrome. 7. Iatrogenic lumbar spondylolisthesis and spondylolysis. 8. Obesity with BMI over 40. POSTOPERATIVE DIAGNOSES: 1. Lumbar stenosis. 2. Narrow canal neural foraminal due to disc and osseous stenosis and cervical stenosis. 3. Lumbar disk herniation. 4. Lumbar radiculopathy. 5. Post-laminectomy syndrome. 6. Post diskectomy syndrome. 7. Iatrogenic lumbar spondylolisthesis and spondylolysis. 8. Obesity with BMI over 40. PROCEDURES PERFORMED: 1. L3-L4 anterolateral transpsoas interbody fusion via left-sided XLIF approach. 2. L4-L5 anterolateral transpsoas interbody fusion via XLIF approach. 3. L3-L4 interbody cage instrumentation without interval fixation. 4. L4-L5 interbody cage fixation without interval fixation. 5. L3-L4 posterior spinal fusion. 6. L4-L5 posterior spinal fusion. 7. L3-L5 posterior segmental instrument pedicle screw instrumentation. 8. Allograft for spinal surgery morselized. DATE AND TIME OF SURGERY: Please see anesthesia records. IMPLANTS USED: 1. Medtronic Voyager posterior percutaneous pedicle screws, 2. K2M Velma titanium interbody XLIF cages. 3. K2M Vesuvius bone graft. SURGEON: Matthew Mchugh MD. DISTILLERY SUPERVISOR: TAVARES Reyes. ROLE OF ACCESS ASSOC: Aid in retraction of the procedure, aid in implantation, instrumentation and closure. ANESTHESIA: General endotracheal. ESTIMATED BLOOD LOSS: 100 mL. IV FLUIDS: Please see anesthesia records. ANTIBIOTICS: Ancef. COMPLICATIONS: None. HISTORY: The patient is a 57-year-old female with previous diskectomy x 2. She developed iatrogenic fracture of pars, disk herniation at the 3-4 level, persistent pain, neural foraminal stenosis, failure of conservative therapy who desires operative treatment. DESCRIPTION OF PROCEDURE: The patient was taken from the operative holding area back to the operative suite after adequate induction of general anesthesia, preoperative antibiotics and placement of spinal monitoring. Standard intraoperative nerve physiologic monitored carried out by me by means of real time. Continuous high quality bidirectional mode, audio and visual communication with the in flight technician and the surgeon by Dr. Huntley was performed. SSEPs, EMGs, and TOFs were continued throughout the procedure and stable. Left-sided approach to the 4-5 disc space was carried out. Retractor was docked and neuromonitoring was stable. Disk was prepped. Trial spacer was utilized in a 12 tall Velma cage filled with allograft bone was impacted into position after adequate discectomy achieved. The procedure was then carried out at the 3 -4 level in a similar manner where a 45 mm long cage was placed at that level. Retractor was then removed. Hemostasis was reassured. Neuromonitoring was stable. The patient was turn prone on the Tarik table, careful padding to all extremities, sterilely prepped and in the posterior lumbar spine. Attention was then directed where bilateral paramedian incision was made. Jamshidi needles were placed. The guidewires placed at the L3, L4 and L5 levels bilaterally. A tubular retractor was placed at the 3-4 and 4-5 facet joint which was directly visualized, decorticated, and packed with allograft bone. After bone decortication of the facet joint at both levels, once the posterior spinal fusion had been performed at those levels, pedile screws were placed. Rods were applied. Final tightening of the construct was formed. Imaging was obtained. Neuromonitoring was stable. Wounds were irrigated and closed in layers. The patient was transferred to the recovery room in stable condition having tolerated the procedure well. Job ID: [id number] DocumentID: [id number] Dictated Date: 07/19/2017 11:13:51 Cook Jelly Date: 07/19/2017 15:43:37 Dictated By: MATTHEW MCHUGH MD [facility]
[2017-07-20] MEDS: NS IV 1000 ML 1,000 ML IV SCH ×3 (02:31→21:42)
[2017-07-20] MEDS: HYDROcodone/APAP 5 MG/325 MG (LORTAB) TAB PO PRN (02:33)
[2017-07-20] MEDS ORDERED: RT-ALBUTEROL HFA (VENTOLIN) PER PUFF IH PRN (03:45)
--- NOTE | 2017-07-20 03:47 | Progress Note (SOAP) ---
Subjective Date Seen by Provider: Jul 20, 2017 Time Seen by Provider: 03:42 Subjective/Events-last exam POD #1, s/p L3-5 Anterolateral fusion with percutaneous posterior fusion VSS, Afebrile Patient complains of low back pain, Denies lower pain Review of Systems General: No Chills Pulmonary: No Cough Cardiovascular: No: Chest Pain Gastrointestinal: No: Nausea, Vomiting, Abdominal Pain Musculoskeletal: back pain, No: leg pain Neurological: No: Weakness Objective Exam Vital Signs Date Time Temp Pulse Resp B/P (MAP) Pulse Ox O2 Delivery O2 Flow Rate FiO2 07/20/17 00:30 98.9 79 18 132/73 97 Nasal Cannula 3.00 07/19/17 19:25 98.0 85 18 129/76 97 Nasal Cannula 3.00 07/19/17 16:00 Nasal Cannula 3.00 07/19/17 15:45 97.3 69 20 124/77 98 Nasal Cannula 3.00 07/19/17 07:35 97.0 63 16 142/85 98 Room Air Capillary Refill : General Appearance: No Apparent Distress Neck: Non Tender Respiratory: No Accessory Muscle Use, No Respiratory Distress Cardiovascular: Normal Peripheral Pulses, Other (+1 BLE edema ) Gastrointestinal: non tender, soft, other (No Bray-Mendoza's sign) Extremity: Non Tender, No Calf Tenderness Neurologic/Psychiatric: Alert, Oriented x3, No Motor/Sensory Deficits, Normal Mood/Affect, correctional maintenance technician II-XII Norm as Tested Lymphatic: No Adenopathy Results Lab Laboratory Tests 07/19/17 08:03: Glucometer 106 07/19/17 14:49: Glucometer 116H 07/19/17 20:43: Glucometer 161H Assessment/Plan Assessment/Plan Assess & Plan/Chief Complaint Lumbar stenosis DM II S/P L3-5 AL/P fusion Increase Hydrocodone Resume home medications Ambulate with PT Discharge planning- Possible Inpatient Rehabilitation Candidate Clinical Quality Measures DVT/VTE Risk/Contraindication: Risk Factor Score Per Nursin RFS Level Per Nursing on Admit: 4+=Very High DORIS MCKEON Jul 20, 2017 03:47
[2017-07-20 06:03] LABS: RED CELL DISTRIBUTION WIDTH 14.7 % (10.0-14.5); WHITE BLOOD COUNT 13.4 10^3/uL (4.3-11.0)
[2017-07-20] MEDS: inSUlin ASPART (NovoLOG) 1 UNIT/0.01 ML (CHARGE PER UNIT) SC SCH ×4 (06:19→21:24)
[2017-07-20] MEDS: MULTIVIT W/MINERALS TAB (THERAGRAN M) PO SCH (06:27)
[2017-07-20] MEDS: ceFAZolin INJECTION 2,000 MG in NS (IVPB) 50 ML IV SCH (06:27)
[2017-07-20] MEDS: PANTOPRAZOLE 20 MG TABLET (PROTONIX) PO SCH (07:12)
[2017-07-20] MEDS: DULoxetine 30 MG (CYMBALTA) CAP PO SCH (08:36)
[2017-07-20] MEDS: HYDROcodone/APAP 10 MG/325 MG (LORTAB) TAB PO PRN ×2 (08:36→12:15)
[2017-07-20] MEDS: FAMOTIDINE 20 MG (PEPCID) TABLET PO SCH ×2 (08:37→21:38)
[2017-07-20] MEDS: HYDROCHLOROTHIAZIDE 25 MG (HCTZ) TAB PO SCH (08:37)
[2017-07-20] MEDS: metFORMIN 500 MG (GLUCOPHAGE) TAB PO SCH ×2 (08:37→18:24)
[2017-07-20] MEDS: lisINopril 10 MG (PRINIVIL) TAB PO SCH (08:38)
[2017-07-20] MEDS: LEVOTHYROXINE 75 MCG (LEVOTHROID) TABLET PO SCH (08:54)
--- NOTE | 2017-07-20 09:00 | Diagnostic Imaging Report ---
EXAMINATION: Two views of the lumbar spine. INDICATION: Postoperative evaluation. FINDINGS: There is posterior fusion hardware involving L3 to L5 with intervertebral disc cages seen at these levels as well. There is satisfactory alignment of the posterior spinal line. Mild disc height loss at L2-3 with prominent anterior osteophytes seen. No significant posterior osteophyte is noted. Gaseous distention of the colon is noted. This is likely secondary to a mild postoperative ileus. Surgical clips in the upper abdomen on the right side are seen. IMPRESSION: Baseline post L3 to L5 fusion changes in good alignment. Dictated by: Dictated on workstation # [id number]
--- NOTE | 2017-07-20 10:15 | Physical Therapy Evaluation ---
PT Evaluation-General Medical Diagnosis Admission Date Jul 19, 2017 at 07:22 Medical Diagnosis: spondylolysis Onset Date: Jul 19, 2017 Therapy Diagnosis Therapy Diagnosis: generalized weakness/debility Height/Weight Height (Feet): 5 Height (Inches): 0.00 Weight (Pounds): 216 Weight (Ounces): 9.0 Precautions Precautions/Isolations: Fall Prevention, Standard Precautions Referral Physician: Jeison Reason for Referral: Evaluation/Treatment Medical History Pertinent Medical History: Hypothroidism Current History s/p L3-5 anterolateral fusion with percutaneous posterior fusion Reviewed History: Yes Social History Home: Single Level Current Living Status: Spouse Entry Into Home: Stairs With Railing PT Steps Into Home: 2 Prior/Core FIM Prior Level of Function Functional [place] Measure 0=Not Assessed/NA 4=Minimal Assistance 1=Total Assistance 5=Supervision or Setup 2=Maximal Assistance 6=Modified [place] 3=Moderate Assistance 7=Complete [place] Bed Mobility: 6 Transfers (B,C,W/C) (FIM): 6 Gait: 6 PT Evaluation-Current Subjective Patient agrees to PT. Donns back brace with set up only. Back brace previously established. Pain Numeric Pain Scale: 10-Worst Possible Pain Location: Left, Lateral, Lower Location Body Site: Back Pain Description: Pressure, Acute, Burning Objective Patient Orientation: Normal For Age Problem Solving: Good Attachments: IV ROM/Strength ROM Lower Extremities bilateral LE WNL Strenght Lower Extremities bilateral LE WNL Integumentary/Posture Integumentary refer to nursing notes Bowel Incontinence: No Bladder Incontinence: No Posture WNL Neuromuscular (Tone, Coordination, Reflexes) grossly intact Sensory Vision: Functional Hearing: Functional Sensation Right Lower Extremit: Intact Sensation Left Lower Extremity: Intact Transfers Functional [place] Measure 0=Not Assessed/NA 4=Minimal Assistance 1=Total Assistance 5=Supervision or Setup 2=Maximal Assistance 6=Modified [place] 3=Moderate Assistance 7=Complete [place] Transfers (B, C, W/C) (FIM): 4 Scootin Rollin Supine to/from Sit: 4 Sit to/from Stand: 5 Gait Mode of Locomotion: Walk Anticipated Mode of Locomotion: Walk Gait (FIM): 5 Distance (FIM): 3=150 ft Distance: 300' Gait Level of Assist: 5 Gait Assistive Device: FWW Comments/Gait Description slow, steady, safe and functional with FWW Balance Sitting Static: Normal Sitting Dynamic: Normal Standing Static: Normal Standing Dynamic: Normal Assessment/Needs 57 y.o. female, will benefit from short term skilled PT to address functional mobility to improve current LOF and to safely return to home at maximum LOF. Patient reports she desires to return to home this week. 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 Machine Assembler Goals [facility] Goals PT [facility] Goals Time Frame: Jul 23, 2017 Transfers (B,C,W/C) (FIM): 6 Gait (FIM): 6 Gait distance (FIM): 3=150 ft Gait Level of Assist: 6 Gait Assistive Device: FWW PT Plan Problem List Problem List: Bed Mobility Treatment/Plan Treatment Plan: Continue Plan of Care Treatment Plan: Bed Mobility, Education, Functional Activity Jocelyn, Functional Strength, Gait, Safety, Therapeutic Exercise, Transfers Treatment Duration: Jul 23, 2017 Frequency: BID x 4 days Estimated Hrs Per Day: .25 hour per day Patient and/or Family Agrees t: Yes Discharge Recommendations Therapy D/C Recommendations: Home w/ Family Support Time/GCodes Time In: 830 Time Out: 850 Total Billed Treatment Time: 20 Total Billed Treatment 1 visit EVLow 20 min TRINA EWING PT Jul 20, 2017 10:15
--- NOTE | 2017-07-20 13:25 | Occupational Therapy Eval ---
OT Evaluation-General/PLF Medical Diagnosis Admission Date Jul 19, 2017 at 07:22 Medical Diagnosis: spondylolysis Onset Date: Jul 19, 2017 Therapy Diagnosis Therapy Diagnosis: decreased self care skills Height/Weight Height (Feet): 5 Height (Inches): 0.00 Weight (Pounds): 216 Weight (Ounces): 9.0 Precautions Precautions/Isolations: Fall Prevention, Standard Precautions Referral Physician: Jeison Medical History Pertinent Medical History: Hypothroidism Reviewed History: Yes Social History Home: Single Level Current Living Status: Spouse Entry Into Home: Stairs With Railing Steps Into Home: 2 ADL-Prior Level of Function ADL PLOF Comments Pt reports being independent with basic self care and mobility prior to admission. Uses cane for mobility DME/Equipment: Shower Drive Self: Yes OT Current Status Subjective Pt sitting in chair, agrees to therapy. Pt reports 3/10 low back pain. Mental Status/Objective Patient Orientation: Person, Place, Situation Attachments: IV Current Hand Dominance: Right Upper Extremity ROM Grossly WFL Upper Extremity Coordination Intact Upper Extremity Sensation Intact per pt report ADL-Treatment ADL-Current Pt sit to stand with supervision. Donned brace with set up. Transferred to EOB with supervision using FWW. Education provided regarding precautions and use of adaptive equipment as needed for LE ADLs. Pt states understanding of education and has no questions at this time. Pt sitting EOB with needs met and family present after session. Functional [place] Measure 0=Not Assessed/NA 4=Minimal Assistance 1=Total Assistance 5=Supervision or Setup 2=Maximal Assistance 6=Modified [place] 3=Moderate Assistance 7=Complete IndependenceIRFPAI Quality Coding Scale 6 Independent with activity with or without an assistive device 5 Patient requires set up or clean up by helper. Patient completes activity by themselves 4 Supervision or touching assist (CGA). [place] provide cues , steadying assist 3 The helper provides less than half the effort to complete the activity 2 The helper provides more than half the effort to complete the activity 1 Dependent. The helper does all the effort to complete an activity 7 Patient refused to complete or attempt activity 9 The patient did not perform the activity before the current illness or injury 88 Not attempted due to Medical conditions or safety concerns Education OT Patient Education: Rehab process Teaching Recipient: Patient Teaching Methods: Discussion Response to Teaching: Verbalize Understanding OT Short Term Goals Short Term Goals 1=Demonstrate adherence to instructed precautions during ADL tasks. 2=Patient will verbalize/demonstrate understanding of assistive devices/ modifications for ADL. 3=Patient will improve strength/tolerance for activity to enable patient to perform ADL's. OT Assayer Helper Goals Assayer Helper Goals Time Frame: Jul 27, 2017 Grooming(FIM): 6 Bathing(FIM): 5 Upper Body Dressing(FIM): 6 Lower Body Dressing(FIM): 5 Toileting(FIM): 6 Toilet/Commode Transfer(FIM): 6 Additional Goals: 1-Demonstrate ADL Tasks, 2-Verbalize Understanding, 3- ImproveStrength/Jocelyn 1=Demonstrate adherence to instructed precautions during ADL tasks. 2=Patient will verbalize/demonstrate understanding of assistive devices/ modifications for ADL. 3=Patient will improve strength/tolerance for activity to enable patient to perform ADL's. OT Education/Plan Problem List/Assessment Assessment: Decreased Activ Tolerance, Dependent Transfers, Impaired Self-Care Skills Pt to benefit from skilled OT intervention for ADL training, transfers, strengthening, and home safety education to maximize level of function and allow safe discharge home with spouse. Discharge Recommendations Plan/Recommendations: Continue POC Treatment Plan/Plan of Care Treatment,Training & Education: Yes Patient would benefit from OT for education, treatment and training to promote independence in ADL's, mobility, safety and/or upper extremity function for ADL' s. Plan of Care: ADL Retraining, Functional Mobility, UE Funct Exercise/Act Treatment Duration: Jul 27, 2017 Frequency: 5 times per week Estimated Hrs Per Day: .5 hour per day Agreement: Yes Rehab Potential: Good Time/GCodes Start Time: 11:36 Stop Time: 12:03 Total Time Billed (hr/min): 27 Billed Treatment Time 1 visit, ALAYNA(27minutes) LASHAE GRULLON OT Jul 20, 2017 13:25
--- NOTE | 2017-07-20 13:43 | Anesthesia-General Post-Op ---
General Patient Condition Mental Status/LOC: Same as Preop Cardiovascular: Satisfactory Nausea/Vomiting: Absent Respiratory: Satisfactory Pain: Controlled Complications: Absent Post Op Complications Complications None Follow Up Care/Instructions Patient Instructions None needed. Anesthesia/Patient Condition Patient Condition Patient is doing well, no complaints, stable vital signs, no apparent adverse anesthesia problems. No complications reported per nursing. TING GARBER CRNA Jul 20, 2017 13:43
--- NOTE | 2017-07-20 14:02 | Physical Therapy Daily Note ---
PT Daily Note-Current Subjective Patient agrees to PT. Pain Numeric Pain Scale: 5-Moderate Pain Location: Lower Location Body Site: Back Pain Description: Acute Mental Status Patient Orientation: Normal For Age Attachments: IV Transfers Functional [place] Measure 0=Not Assessed/NA 4=Minimal Assistance 1=Total Assistance 5=Supervision or Setup 2=Maximal Assistance 6=Modified [place] 3=Moderate Assistance 7=Complete IndependenceIRFPAI Quality Coding Scale 6 Independent with activity with or without an assistive device 5 Patient requires set up or clean up by helper. Patient completes activity by themselves 4 Supervision or touching assist (CGA). [place] provide cues , steadying assist 3 The helper provides less than half the effort to complete the activity 2 The helper provides more than half the effort to complete the activity 1 Dependent. The helper does all the effort to complete an activity 7 Patient refused to complete or attempt activity 9 The patient did not perform the activity before the current illness or injury 88 Not attempted due to Medical conditions or safety concerns Transfers (B, C, W/C) (FIM): 4 Scootin Rollin Supine to/from Sit: 4 Sit to/from Stand: 6 Bed to/from Chair: 6 min assist to attain sit EOB Gait Training Gait (FIM): 6 Distance (FIM): 3=150 ft Distance: 600' Gait Level of Assist: 6 Gait Assistive Device: FWW slow, functional Assessment Current Status: Excellent Progress Patient progressing. Good pain control. PT Mechanic Recovery Goals Mechanic Recovery Goals PT Mechanic Recovery Goals Time Frame: Jul 23, 2017 Transfers (B,C,W/C) (FIM): 6 Gait (FIM): 6 Gait distance (FIM): 3=150 ft Gait Level of Assist: 6 Gait Assistive Device: FWW PT Plan Treatment/Plan Treatment Plan: Continue Plan of Care Treatment Plan: Bed Mobility, Education, Functional Activity Jocelyn, Functional Strength, Gait, Safety, Therapeutic Exercise, Transfers Treatment Duration: Jul 23, 2017 Frequency: BID x 4 days Estimated Hrs Per Day: .25 hour per day Patient and/or Family Agrees t: Yes Time/GCodes Time In: 1330 Time Out: 1345 Total Billed Treatment Time: 15 Total Billed Treatment 1 visit GT 15 min TRINA EWING PT Jul 20, 2017 14:02
--- NOTE | 2017-07-20 16:05 | Consultation-Hospitalist ---
HPI History of Present Illness: HPI/Chief Complaint HPI: Pt is a 57yoCF with a PMH of hypothyroidism, HTN, NAFLD, fibromyalgia, and depression who was admitted yesterday following L3-5 fusion. She reports that she has been up and ambulating twice today and doing okay with pain medicine. She does have back pain but otherwise is doing well. She is passing flatus but has not had a BM yet and would like a stool softener. She otherwise states she' s eating and drinking well. Source: patient, old records Exam Limitations: no limitations Date Seen 07/20/17 Attending Physician Matthew Mchugh MD PCP No,Local Physician Referring Physician Jeison Date of Admission Jul 19, 2017 at 07:22 Home Medications & Allergies Home Medications Reviewed patient Home Medication Reconciliation Form Allergies Allergies Coded Allergies Sulfa (Sulfonamide Antibiotics) (Verified Allergy, Intermediate, N/V, 07/06/17) simvastatin (Verified Allergy, Intermediate, MUSCLE ACHES, 07/06/17) Past [id number] Hx Patient Social History Alcohol Use: Denies Use Recreational Drug Use: No Smoking Status: Never a Smoker Physical Abuse Screen: No Sexual Abuse: No Recent Foreign Travel: No Contact w/other who traveled: No Recent Hopitalizations: No Recent Infectious Disease Expo: No Seasonal Allergies Seasonal Allergies: Yes (MILD) Surgeries Yes (BACK X2, CYST REMOVED FROM HAND, UMBILICAL HERNIA, ) Respiratory Yes (EXERCISE INDUCED ASTHMA) Currently Using CPAP: Yes Cardiovascular Yes Neurological No Reproductive System Sexually Transmitted Disease: No HIV/AIDS: No Female Reproductive Disorders: Denies Genitourinary No Gastrointestinal Yes (FATTY LIVER ) Gastroesophageal Reflux, Liver Disease/Jaundice, Polyps, Hiatal Hernia Musculoskeletal Yes Degenerate Disk Disease, Fibromyalgia, Chronic Back Pain Endocrine History of Endocrine Disorders: Yes (PRE-DIABETIC) Endocrine Disorders: Hypothyroidsim HEENT History of HEENT Disorders: Yes (GLASSES) Loss of Vision: Bilateral Hearing Impairment: Denies Cancer No Psychosocial History of Psychiatric Problem: Yes Behavioral Health Disorders: Depression Integumentary History of Skin or Integumenta: No Blood Transfusions History of Blood Disorders: No Adverse Reaction to a Blood Tr: No (N/A) Family Medical History Significant Family History: Heart Disease, Diabetes Review of Systems Constitutional: No chills, No fever EENTM: no symptoms reported Respiratory: cough, phlegm, No short of breath Cardiovascular: No chest pain, No palpitations Gastrointestinal: constipation, No nausea Genitourinary: No dysuria, No frequency Musculoskeletal: back pain Physical Exam Physical Exam Vital Signs Vital Sign - Last 12Hours 07/19/17 07/19/17 07:35 15:45 Temp 97.0 Pulse 63 Resp 16 B/P (MAP) 142/85 Pulse Ox 98 O2 Delivery Room Air O2 Flow Rate 3.00 Capillary Refill : General Appearance: No Apparent Distress, WD/WN Respiratory: Lungs Clear, Normal Breath Sounds Cardiovascular: Regular Rate, Rhythm, No Edema, No JVD, No Murmur Gastrointestinal: Normal Bowel Sounds, Non Tender, Soft Neurologic/Psychiatric: Alert, Oriented x3, Normal Mood/Affect Skin: Normal Color, Warm/Dry Results Results/Procedures Lab Laboratory Tests 07/20/17 05:38 Assessment/Plan Admission Diagnosis Lumbar stenosis s/p fusion Diagnosis/Problems Diagnosis/Problems (1) Hypothyroidism Status: Chronic Assessment & Plan: Continue home medication for now Does not have PCP so unsure of who check TSH- will check in AM (2) Constipation Status: Acute Assessment & Plan: Will add on docusate, Miralax (3) Essential (primary) hypertension Status: Chronic Assessment & Plan: Continue Lisinopril, HCTZ BP well controlled (4) Fibromyalgia Status: Chronic Assessment & Plan: Continue Cymbalta Clinical Quality Measures DVT/VTE Risk/Contraindication: Risk Factor Score Per Nursin RFS Level Per Nursing on Admit: 4+=Very High JEANNE CARIAS MD Jul 20, 2017 16:05
[2017-07-20] MEDS ORDERED: POLYETHYLENE GLYCOL 17 GM (MIRALAX) PACK PO PRN ×2 (16:15→17:45)
[2017-07-20] MEDS ORDERED: DOCUSATE SODIUM 100 MG (COLACE) CAP PO PRN (16:15)
[2017-07-20] MEDS: SIMvastatin 20 MG (ZOCOR) TAB PO SCH (21:38)
[2017-07-21] MEDS: morphine INJ 10 MG/ML 1ML (SYR OR VIAL) IVP PRN ×2 (01:59→06:21)
[2017-07-21 04:55] VITALS: BP 141/70
[2017-07-21] MEDS: inSUlin ASPART (NovoLOG) 1 UNIT/0.01 ML (CHARGE PER UNIT) SC SCH ×4 (05:49→21:12)
[2017-07-21] MEDS: PANTOPRAZOLE 20 MG TABLET (PROTONIX) PO SCH (06:21)
[2017-07-21] MEDS: MULTIVIT W/MINERALS TAB (THERAGRAN M) PO SCH (06:21)
--- NOTE | 2017-07-21 06:37 | Progress Note (SOAP) ---
Subjective Date Seen by Provider: Jul 21, 2017 Time Seen by Provider: 06:34 Subjective/Events-last exam Leg pain and numbness much better. Really notices big difference, just surgery pain at this point. Objective Exam Vital Signs Date Time Temp Pulse Resp B/P (MAP) Pulse Ox O2 Delivery O2 Flow Rate FiO2 07/21/17 04:55 98.5 72 18 141/70 94 Room Air 07/20/17 23:20 98.2 76 18 166/78 93 Room Air 07/20/17 21:00 Room Air 07/20/17 20:00 98.1 71 18 147/70 96 Room Air 07/20/17 16:00 97.2 72 20 137/65 94 Room Air 07/20/17 11:50 98.8 68 20 119/56 95 Room Air 07/20/17 09:00 96 Room Air 07/20/17 07:40 98.3 73 20 159/72 96 Room Air Capillary Refill : General Appearance: No Apparent Distress Respiratory: No Accessory Muscle Use, No Respiratory Distress Cardiovascular: Normal Peripheral Pulses Gastrointestinal: non tender, soft, other (+flatus) Extremity: Non Tender, No Calf Tenderness Neurologic/Psychiatric: Alert, Oriented x3, No Motor/Sensory Deficits Results Lab Laboratory Tests 07/20/17 10:26: Glucometer 132H 07/20/17 16:08: Glucometer 120H 07/20/17 20:47: Glucometer 102 07/21/17 05:44: Glucometer 106 Assessment/Plan Assessment/Plan Assess & Plan/Chief Complaint S/P L3-5 AL/P fusion Lumbar Spondylolysis Lumbar Stenosis Obesity BMI >40 Lumbar Radiculopathy Plan: continue to mobilize and pain control Clinical Quality Measures DVT/VTE Risk/Contraindication: Risk Factor Score Per Nursin RFS Level Per Nursing on Admit: 4+=Very High CRISTÓBAL COOK MD Jul 21, 2017 6:36 am
[2017-07-21 08:00] VITALS: BP 150/70
[2017-07-21] MEDS: HYDROcodone/APAP 10 MG/325 MG (LORTAB) TAB PO PRN ×3 (08:24→21:09)
[2017-07-21] MEDS: HYDROCHLOROTHIAZIDE 25 MG (HCTZ) TAB PO SCH (09:32)
[2017-07-21] MEDS: lisINopril 10 MG (PRINIVIL) TAB PO SCH (09:33)
[2017-07-21] MEDS: FAMOTIDINE 20 MG (PEPCID) TABLET PO SCH ×2 (09:34→21:08)
[2017-07-21] MEDS: DULoxetine 30 MG (CYMBALTA) CAP PO SCH (09:34)
[2017-07-21] MEDS: metFORMIN 500 MG (GLUCOPHAGE) TAB PO SCH ×2 (09:34→18:10)
--- NOTE | 2017-07-21 10:02 | Progress Note-Hospitalist ---
Progress Note HPI/CC on Admission HPI: Pt is a 57yoCF with a PMH of hypothyroidism, HTN, NAFLD, fibromyalgia, and depression who was admitted yesterday following L3-5 fusion. She reports that she has been up and ambulating twice today and doing okay with pain medicine. She does have back pain but otherwise is doing well. She is passing flatus but has not had a BM yet and would like a stool softener. She otherwise states she' s eating and drinking well. 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 Mchugh POD # 1 Obstructive sleep apnea maintain on C Pap but forgot her machine here Diabetes mellitus on metformin Hyperlipidemia Hypertension Hypothyroidism Obesity Postop constipation on chronic constipation requesting additional meds besides MiraLAX Plan: Bowel regimen Pain control DC planned PT/OT LIZ WALKER DO Jul 21, 2017 10:02
[2017-07-21] MEDS: LEVOTHYROXINE 75 MCG (LEVOTHROID) TABLET PO SCH (10:27)
[2017-07-21] MEDS: SENNA W/DOCUSATE (SENOKOT S) TABLET PO SCH ×2 (10:27→21:08)
[2017-07-21] MEDS: LACTULOSE SYRUP 10GM/15ML (ENULOSE) 30ML UDC PO SCH ×2 (10:27→21:09)
--- NOTE | 2017-07-21 11:05 | Physical Therapy Progress Note ---
Therapy Progress Note Patient was lying in bed upon PT arrival to room, just finished with OT. OT reports pt was able to get to bathroom and back to bed. Pt was crying and visibly upset, reports 10/10 pain. Nursing is aware of patient's pain and pain medications were given to patient. Pt declines physical therapy at this time, will return this afternoon to try again. VASYL PATEL PT Jul 21, 2017 11:05
[2017-07-21] MEDS: NS IV 1000 ML 1,000 ML IV SCH ×2 (11:53→17:43)
[2017-07-21 12:00] VITALS: BP 156/82
--- NOTE | 2017-07-21 13:23 | Occupational Ther Daily Note ---
OT Current Status-Daily Note Subjective Pt in bed, states she is having more pain this morning, but would like to try to get up and do something. Pt rates her back pain 7/10, states she's had pain medication. Mental Status/Objective Functional [place] Measure 0=Not Assessed/NA 4=Minimal Assistance 1=Total Assistance 5=Supervision or Setup 2=Maximal Assistance 6=Modified [place] 3=Moderate Assistance 7=Complete [place] Attachments: IV ADL-Treatment Pt supine to sit with minimal assistance and cues for technique. Sit to stand with supervision. Gait to restroom with FWW, slow pace. Transfer to toilet with SBA. Pt able to complete toileting hygiene. Stood at sink to wash hands. Pt initially states she would like to sit at sink and wash up, but then states she would feel better sitting EOB. Pt transferred to EOB with SBA using FWW. Partial sponge bath completed with set up. Pt changed gown with minimal assistance secondary to IV. Pt states she thought she would feel better getting up, but is being limited by pain and would like to return to bed to rest. Sit to supine with assist for bilateral LE. Pt resting in bed with needs met after session. OT Short Term Goals Short Term Goals 1=Demonstrate adherence to instructed precautions during ADL tasks. 2=Patient will verbalize/demonstrate understanding of assistive devices/ modifications for ADL. 3=Patient will improve strength/tolerance for activity to enable patient to perform ADL's. OT Residential Goals Backpackers Manager Goals Time Frame: Jul 27, 2017 Grooming(FIM): 6 Bathing(FIM): 5 Upper Body Dressing(FIM): 6 Lower Body Dressing(FIM): 5 Toileting(FIM): 6 Toilet/Commode Transfer(FIM): 6 Additional Goals: 1-Demonstrate ADL Tasks, 2-Verbalize Understanding, 3- ImproveStrength/Jocelyn 1=Demonstrate adherence to instructed precautions during ADL tasks. 2=Patient will verbalize/demonstrate understanding of assistive devices/ modifications for ADL. 3=Patient will improve strength/tolerance for activity to enable patient to perform ADL's. OT Education/Plan Problem List/Assessment Pt to benefit from skilled OT intervention for ADL training, transfers, strengthening, and home safety education to maximize level of function and allow safe discharge home with spouse. Discharge Recommendations Plan/Recommendations: Continue POC Treatment Plan/Plan of Care Patient would benefit from OT for education, treatment and training to promote independence in ADL's, mobility, safety and/or upper extremity function for ADL' s. Plan of Care: ADL Retraining, Functional Mobility, UE Funct Exercise/Act Treatment Duration: Jul 27, 2017 Frequency: 5 times per week Estimated Hrs Per Day: .5 hour per day Agreement: Yes Rehab Potential: Good Time/GCodes Start Time: 10:26 Stop Time: 10:52 Total Time Billed (hr/min): 26 Billed Treatment Time 1 visit, ADLx2(26minutes) LASHAE GRULLON OT Jul 21, 2017 13:23
--- NOTE | 2017-07-21 15:41 | Physical Therapy Daily Note ---
PT Daily Note-Current Subjective Pt smiling, "I feel much better now. I took pain meds because I knew you would be back." Reports she plans to go home tomorrow. Mental Status Patient Orientation: Person, Place, Time, Situation Transfers Functional [place] Measure 0=Not Assessed/NA 4=Minimal Assistance 1=Total Assistance 5=Supervision or Setup 2=Maximal Assistance 6=Modified [place] 3=Moderate Assistance 7=Complete IndependenceIRFPAI Quality Coding Scale 6 Independent with activity with or without an assistive device 5 Patient requires set up or clean up by helper. Patient completes activity by themselves 4 Supervision or touching assist (CGA). [place] provide cues , steadying assist 3 The helper provides less than half the effort to complete the activity 2 The helper provides more than half the effort to complete the activity 1 Dependent. The helper does all the effort to complete an activity 7 Patient refused to complete or attempt activity 9 The patient did not perform the activity before the current illness or injury 88 Not attempted due to Medical conditions or safety concerns Transfers (B, C, W/C) (FIM): 4 Supine to/from Sit: 4 (Pt used this therapist arm to pull up from the bed. ) Sit to/from Stand: 5 (SBA for safety) Gait Training Pt ambulated x 125 ft with FWW with SBA with 1 standing rest break. Up in chair post treatment with needs met. Pt wore lumbar support during ambulation and left it on once up in the chair. Assessment Current Status: Good Progress Tolerated well. Feeling better this pm PT Group Home Goals Group Home Goals PT Commercial Production Editor Goals Time Frame: Jul 23, 2017 Transfers (B,C,W/C) (FIM): 6 Gait (FIM): 6 Gait distance (FIM): 3=150 ft Gait Level of Assist: 6 Gait Assistive Device: FWW PT Plan Problem List Problem List: Activity Tolerance, Functional Strength, Gait, Transfer Treatment/Plan Treatment Plan: Continue Plan of Care Treatment Plan: Bed Mobility, Education, Functional Activity Jocelyn, Functional Strength, Gait, Safety, Therapeutic Exercise, Transfers Treatment Duration: Jul 23, 2017 Frequency: BID x 4 days Estimated Hrs Per Day: .25 hour per day Patient and/or Family Agrees t: Yes Safety Risks/Education Patient Education: Transfer Techniques, Safety Issues Teaching Recipient: Patient Teaching Methods: Discussion Response to Teaching: Reinforcement Needed Time/GCodes Time In: 1520 Time Out: 1536 Total Billed Treatment Time: 16 Total Billed Treatment visit GT 16 UNA RASHID PT Jul 21, 2017 15:41
[2017-07-21 15:50] VITALS: BP 137/84
[2017-07-21 20:50] VITALS: BP 147/85
[2017-07-21] MEDS: SIMvastatin 20 MG (ZOCOR) TAB PO SCH (21:09)
[2017-07-22 00:29] VITALS: BP 142/75
[2017-07-22] MEDS: NS IV 1000 ML 1,000 ML IV SCH (03:40)
[2017-07-22] MEDS: inSUlin ASPART (NovoLOG) 1 UNIT/0.01 ML (CHARGE PER UNIT) SC SCH ×2 (05:57→11:06)
[2017-07-22] MEDS: PANTOPRAZOLE 20 MG TABLET (PROTONIX) PO SCH (06:43)
[2017-07-22] MEDS: metFORMIN 500 MG (GLUCOPHAGE) TAB PO SCH (06:43)
[2017-07-22] MEDS: MULTIVIT W/MINERALS TAB (THERAGRAN M) PO SCH (06:43)
[2017-07-22 08:00] VITALS: BP 132/70
[2017-07-22] MEDS: LACTULOSE SYRUP 10GM/15ML (ENULOSE) 30ML UDC PO SCH (09:13)
[2017-07-22] MEDS: SENNA W/DOCUSATE (SENOKOT S) TABLET PO SCH (09:13)
[2017-07-22] MEDS: HYDROCHLOROTHIAZIDE 25 MG (HCTZ) TAB PO SCH (09:13)
[2017-07-22] MEDS: FAMOTIDINE 20 MG (PEPCID) TABLET PO SCH (09:14)
[2017-07-22] MEDS: lisINopril 10 MG (PRINIVIL) TAB PO SCH (09:14)
[2017-07-22] MEDS: LEVOTHYROXINE 75 MCG (LEVOTHROID) TABLET PO SCH (09:14)
[2017-07-22] MEDS ORDERED: BACL10TA PO (09:35)
[2017-07-22] MEDS ORDERED: TRAM50TA2 PO (09:35)
--- NOTE | 2017-07-22 09:44 | Discharge Inst-Surgical ---
Discharge Inst-Surgical Depart Medication/Instructions New, Converted or Re-Newed RX: RX on Chart Final Diagnosis: Lumbar Stenosis Consults/Follow Up Goal/Follow Up Appt.: [address] Mchugh Activity Activity as Tolerated: No No lifting over 8 lbs, very little bending, lifting, or twisting Walking Assistive Device: Walker Activity Instructions: Avoid Pulling & Pushing, Avoid Stress to Incision Driving Instructions: No Driving for 2 Weeks No Driving When on Pain Meds: Yes Incentive Spirometry: Every 2 Hours While Awake Avoid ALL Tobacco Products: Smoking of Any Kind Diet Discharge Diet: No Restrictions Return to The Hospital For: Fever over 101, purulent drainage from incision If Any Problems/Questions/Issu: Contact Your Physician Skin/Wound Care Infection Signs and Symptoms: Increased Redness, Foul Odor of Wound, Increased Drainage Bathing Instructions: Shower Operative Area Clean and Dry: Keep Incision Clean/Dry Steristrips: Will Fall Off in 1-2 Wks BRINDA HEWITT Jul 22, 2017 09:44
--- NOTE | 2017-07-22 09:46 | Progress Note (SOAP) ---
Subjective Time Seen by Provider: 09:44 Subjective/Events-last exam Pt doing better. Some soreness in her hips, but is up and independent and ready to go home. Objective Exam Vital Signs Date Time Temp Pulse Resp B/P (MAP) Pulse Ox O2 Delivery O2 Flow Rate FiO2 07/22/17 08:00 97.9 68 18 132/70 97 Room Air 07/22/17 07:50 Room Air 07/22/17 00:29 98.5 73 18 142/75 95 Room Air 07/21/17 21:00 Room Air 07/21/17 20:50 97.6 71 20 147/85 95 Room Air 07/21/17 16:06 96.9 07/21/17 15:50 97.5 69 18 137/84 96 Room Air 07/21/17 14:59 96.9 07/21/17 12:00 96.9 67 24 156/82 91 Room Air Capillary Refill : General Appearance: No Apparent Distress, WD/WN Respiratory: No Accessory Muscle Use Extremity: Non Tender, No Calf Tenderness Neurologic/Psychiatric: Alert, Oriented x3, No Motor/Sensory Deficits Results Lab Laboratory Tests 07/21/17 11:37: Glucometer 117H 07/21/17 15:55: Glucometer 111H 07/21/17 21:12: Glucometer 100 07/22/17 05:20: Glucometer 101 Assessment/Plan Assessment/Plan Assess & Plan/Chief Complaint S/P Lumbar fusion DC to home today Follow up with Dr. Mchugh in 2 weeks Decadron 8 mg IV X1 Clinical Quality Measures DVT/VTE Risk/Contraindication: Risk Factor Score Per Nursin RFS Level Per Nursing on Admit: 4+=Very High BRINDA HEWITT Jul 22, 2017 09:46
[2017-07-22] MEDS ORDERED: DEXAMETHASONE 4 MG/ML SDV (DECADRON) IV NR (10:00)
--- NOTE | 2017-07-22 10:11 | Physical Therapy Progress Note ---
Therapy Progress Note Patient assisted to restroom, Modified independent with all mobility safely. Patient to dismiss to home on this date. 1 visit TRINA EWING PT Jul 22, 2017 10:11
[2017-07-22] MEDS: DULoxetine 30 MG (CYMBALTA) CAP PO SCH (10:38)
[2017-07-22 11:35] VITALS: BP 132/70
[2017-07-22] MEDS: HYDROcodone/APAP 10 MG/325 MG (LORTAB) TAB PO PRN (11:35)
--- NOTE | 2017-07-29 14:07 | Discharge Summary ---
Diagnosis/Chief Complaint Date of Admission Jul 19, 2017 at 07:22 Date of Discharge Jul 22, 2017 at 12:45 Discharge Date: Jul 22, 2017 Discharge Time: 08:00 Admission Diagnosis Admission Diagnosis lumbar stenosis Discharge Diagnosis lumbar stenosis Reason Hospital Visit low back and leg pain Discharge Summary Hospital Course Hospital Course Mrs. Jerez is a 57 y/o white female with a history of low back and bilateral lower extremity pain. She was brought to [facility] for a planned surgical intervention. Post-operatively the patient progressed well with PT and had good pain control with oral analgesics. Due to her continued progress she was discharged home on POD #3. There were no events during her hospital course. Procedures L3-5 AL/P fusion with posterior percutaneous fixation Discharge Physical Examination Allergies: Coded Allergies: Sulfa (Sulfonamide Antibiotics) (Verified Allergy, Intermediate, N/V, ) simvastatin (Verified Allergy, Intermediate, MUSCLE ACHES, 07/06/17) General Appearance: Alert, Oriented X3 Cardiovascular: Regular Rate Abdominal: Normal Bowel Sounds Skin: No Rashes Neuro: Normal Gait, Strength at 5/5 X4 Ext Psych/Mental Status: Mental Status NL Discharge Home Medications Reviewed and agree with Discharge Medication list on patient's Discharge Instruction sheet Condition at Discharge Stable Instructions to Patient/Family Please see electronic discharge instructions given to patient. Clinical Quality Measures DVT/VTE Risk/Contraindication: Risk Factor Score Per Nursin RFS Level Per Nursing on Admit: 4+=Very High BRINDA HEWITT Jul 29, 2017 14:06
== END 2017-07-22 12:45 | disposition home or self-care (01) | DRG 454 ==
LOC: 4TH 07:22 → SURG 07:23 → 4TH 12:30
PROVIDERS: ADMIT Orthopaedic Surgery Orthopaedic Surgery of the Spine; ATTEND Orthopaedic Surgery Orthopaedic Surgery of the Spine
PROC: 0SG10K1 Fusion of 2 or more Lumbar Vertebral Joints with Nonautologous Tissue Substitute, Posterior Approach, Posterior Column, Open Approach (ICD-10-PCS; 2017-07-19)
PROC: 0SG10A0 Fusion of 2 or more Lumbar Vertebral Joints with Interbody Fusion Device, Anterior Approach, Anterior Column, Open Approach (ICD-10-PCS; principal; 2017-07-19 08:34)
DX: M48.06 Spinal stenosis, lumbar region (principal); M51.16 Intervertebral disc disorders with radiculopathy, lumbar region; M96.1 Postlaminectomy syndrome, not elsewhere classified; M43.16 Spondylolisthesis, lumbar region; M47.26 Other spondylosis with radiculopathy, lumbar region; E66.9 Obesity, unspecified; Z68.41 Body mass index [BMI] 40.0-44.9, adult; E11.9 Type 2 diabetes mellitus without complications; E03.9 Hypothyroidism, unspecified; I10 Essential (primary) hypertension; M79.7 Fibromyalgia; F32.9 Major depressive disorder, single episode, unspecified; K21.9 Gastro-esophageal reflux disease without esophagitis; K44.9 Diaphragmatic hernia without obstruction or gangrene; K59.09 Other constipation; K76.0 Fatty (change of) liver, not elsewhere classified; G47.33 Obstructive sleep apnea (adult) (pediatric); E78.5 Hyperlipidemia, unspecified
CPT/HCPCS: 36415; 72100; 82962; 85027; 94664